=== PATIENT | female | born 1950 | race Caucasian/White ===

== ENCOUNTER → 2017-05-06 | Outpatient (CLI) | payer OTHER ==
[~2017-05-06] MED LIST: AMBIEN PO; ATARAX PO; ATIVAN PO; CERTAGEN PO; CHANTIX1 MG BC; CLEOCIN PO; EFFEXOR XR PO; FISH OIL 1,0001 CAP PO; FLEXERIL PO; GLUCOSAMINE CHON; HCTZ PO; LORTAB 7.5-5001 TAB PO; MOBIC PO; MULTI-DAY1 TAB PO; NAPROXEN PO; NIACIN PO; OYSTER CALCIUM500 MG PO; PRAVACHOL PO; SKELAXIN PO; SYNTHROID PO; VICODIN 5/500 T1 TAB PO; VICODIN PO; VIT B COMPLEX; VITAMIN B6; VITAMIN E; ZETIA PO; ZYRTEC PO; [UNRECOGNIZED DRUG - CODE] PO
--- NOTE | ~2017-05-06 | BD1 ---
[facility] A Service of [facility] & [facility] RADIOLOGY TEXT RESULTS PATIENT: CASANDRA ANDREWS LOCATION: [facility] : 48 UNIT #: [id number] AGE: [address]: Beto Easton MD SEX: F ORDER DR: [id number] [facility] [address] [place], [place] [address] [id number] O MR#: [id number] Acc #: [id number] NAME: CASANDRA ANDREWS : 1950 SEX: F STUDY DATE/TIME: 05/06/2017 9:29 UNIT: [facility] ROOM: STUDY DESCRIPTION: BD Dexa Bone Dens 1+ Site Attending Physician: Beto Easton M.D. Referring Physician: Beto Easton M.D. Ordering Physician: Beto Easton M.D. Primary Care Physician: Beto Easton M.D. MEDICAL IMAGING REPORT This report is preliminary unless electronic signature is present EXAM DXA scan, 05/06/2017. HISTORY Status post menopause with no hormone replacement therapy. Osteopenia. Hysterectomy at age 32. Family history of breast carcinoma in sister. Arthritis. Hypertension with blood pressure medication for 2 years. Thyroid medication Levothyroxine use for 20 years. Smoking history for 45 years. Family history of osteoporosis in mother and sister. FINDINGS Bone mineral density in the lumbar spine from L1 through L4 is 0.926 g/cm2 which is 1.1 standard deviations below the mean when compared to the young adult reference population which is characteristic of osteopenia. This is 0.9 standard deviations above the mean when compared to the age-matched population. Bone mineral density in the left femoral neck was 0.671 g/cm2 which is 1.6 standard deviations below the mean when compared to the young adult reference population which is characteristic of osteopenia. This is 0.1 standard deviations above the mean when compared to the age-matched population. IMPRESSION Bone mineral density in the lumbar spine and left hip characteristic of osteopenia. Dictated by... Zachery Belle M.D. THIS IS AN ELECTRONICALLY VERIFIED REPORT Zachery Belle M.D. at 05/07/2017 10:18 AM KRT/jt [facility] A Service of [facility] & [facility] RADIOLOGY TEXT RESULTS PATIENT: CASANDRA ANDREWS LOCATION: [facility] #: [id number] : [birth year] UNIT #: [id number] AGE: [address]: Beto Easton MD SEX: F ORDER DR: TD: 05/06/2017 17:27 JOB #: [id number] MEDICAL IMAGING REPORT Page 1 of 1 COPY
--- NOTE | ~2017-05-06 | MY29 ---
[facility] A Service of [facility] & [facility] RADIOLOGY TEXT RESULTS PATIENT: CASANDRA ANDREWS LOCATION: [facility] : 48 UNIT #: [id number] AGE: [address]: Beto Easton MD SEX: F ORDER DR: [id number] [facility] [address] [place], [place] [address] [id number] O MR#: [id number] Acc #: [id number] NAME: CASANDRA ANDREWS : 1950 SEX: F STUDY DATE/TIME: 05/06/2017 9:43 UNIT: [facility] ROOM: STUDY DESCRIPTION: MY TALON SCREENING W/ CAD BILAT Attending Physician: Beto Easton M.D. Referring Physician: Beto Easton M.D. Ordering Physician: Beto Easton M.D. Primary Care Physician: Beto Easton M.D. MEDICAL IMAGING REPORT This report is preliminary unless electronic signature is present EXAM Digital screening mammogram, 05/06/2017 HISTORY 66-year-old woman positive family history, sisters ages 40 and 70. Annual screening. COMPARISON Mammograms date to 12/17/2006 with most recent screening 01/22/2014 diagnostic left breast followup 02/12/2014. FINDINGS Digital imaging of each breast was completed utilizing screening protocol. Review includes FDA-approved CAD device. Breast parenchyma is heterogeneous with fibronodular pattern present upper outer quadrants of each breast. The overall appearance is stable. I see no developing mass or interval occurring microcalcifications. There is no suspicious architectural deformity. IMPRESSION Benign mammogram. Annual screening recommended. Patients over the age of 40 are entered into a reminder system with target due date for the next mammogram. A result letter will also be sent to the patient. BIRADS: 2 Benign Finding Dictated by... Doug Gan M.D. THIS IS AN ELECTRONICALLY VERIFIED REPORT Doug Gan M.D. at 05/06/2017 11:04 AM [facility] A Service of [facility] RADIOLOGY TEXT RESULTS PATIENT: CASANDRA ANDREWS LOCATION: [facility] : 48 UNIT #: [id number] AGE: [address]: Beto Easton MD SEX: F ORDER DR: Mary TD: 05/06/2017 10:33 JOB #: [id number] MEDICAL IMAGING REPORT Page 1 of 1 COPY
== END | disposition home or self-care (01) ==
LOC: CWCC 09:07
DX: Z12.31 Encounter for screening mammogram for malignant neoplasm of breast (principal); Z80.3 Family history of malignant neoplasm of breast; M85.80 Other specified disorders of bone density and structure, unspecified site; Z78.0 Asymptomatic menopausal state
CPT/HCPCS: 77080; G0202